=== PATIENT | male | born 1940 | race Caucasian/White ===

== ENCOUNTER 2016-05-13 20:28 | Emergency (ER) | payer MEDICARE, OTHER ==
[2016-05-13 21:18] LABS: ALT (SGPT) 20 U/L (0-55); AST (SGOT) 21 U/L (5-34); Alkaline Phosphatase 79 U/L (40-150); Anion Gap 15 mmol/L (10-20); BUN (Urea Nitrogen) 25 mg/dL (8.4-25.7); Bilirubin, Total 0.3 mg/dL (0.2-1.2); Calc. Creatinine Clearance 0 mL/min (70-130); Calcium 8.8 mg/dL (7.8-10.44); Carbon Dioxide 20 mmol/L (23-31); Chloride 105 mmol/L (98-107); Estimated GFR-MDRD 43; Globulin 2.6 g/dL (2.4-3.5); Protein, Total 6.7 g/dL (5.8-8.1)
[2016-05-13 21:20] LABS: Troponin I 0.023 ng/mL (< 0.028)
[2016-05-13 21:35] LABS: Hematocrit 46.4 % (42.0-52.0); Mean Platelet Volume 7.1 fL (7.4-10.4); Neutrophil 40 % (42-75); Reactive Lymphocytes 20 % (0-10); Red Blood Cell (RBC) Count 5.26 mill/uL (4.70-6.10); White Blood Cell (WBC) Count 14.8 thou/uL (4.8-10.8)
[2016-05-13] MEDS ORDERED: Metoprolol Tartrate 25 MG TAB ONE (21:42)
--- NOTE | 2016-05-13 22:05 | RAD ---
CHEST ONE VIEW 05/13/16 HISTORY: Atrial fibrillation, dyspnea. COMPARISON: 12/21/15 FINDINGS: The cardiac silhouette is magnified by projection. Mediastinum is midline with sternotomy wires and aortic calcification. There is no lobar consolidation. Mild bibasilar atelectasis is similar in appe arance to the prior study. Calcified granulomata are consistent with healed granulomatous disease. IMPRESSION: Chronic type findings appear stable. POS: [facility]
--- NOTE | 2016-05-14 00:28 | ERRECORD ---
[facility] EMERGENCY RECORD HPI PALPITATIONS (23:30 AGRE) CHIEF COMPLAINT: Patient presents for evaluation of heart racing. HISTORIAN: History provided by patient, History provided by patient's spouse, ABOUT 1 HR AGO HIS HEART STARTED RACING. NO CHEST PAIN OR SOB. HX OF SIMILAR EPISODES IN THE PAST WITH HIS ATRIAL FIBRILLATION. NO COUGH, ABDOMINAL PAIN OR OTHER SYMPTOMS. SAYS HAS EPISODES OF THIS FROM TIME TO TIME AT HOME AND IT WILL STOP ON ITS OWN BUT TONIGHT IT DID NOT. LOCATION: No localizing symptoms. QUALITY: NO PAIN. SEVERITY: Maximum severity of symptoms moderate, Currently symptoms are moderate. TIME COURSE: Sudden onset of symptoms, There has been no change in the patient's symptoms over time. CHADS2 SCORE: Patient has history of Congestive Heart Failure (1). ASSOCIATED WITH: No associated symptoms, No associated dizziness, Not associated with exertion, No associated headache, No associated nausea, No associated shortness of breath, No associated stress, No associated syncope, No associated vomiting, Denies any other complaints. EXACERBATED BY: Patient's condition exacerbated by nothing. RELIEVED BY: Patient's condition relieved by nothing. ROS (23:34 AGRE) CONSTITUTIONAL: Historian denies chills, denies fever, denies weakness. EYES: Historian denies eye redness, denies vision changes. ENT: Historian denies sore throat, denies stridor. CARDIOVASCULAR: Historian denies chest pain, denies diaphoresis, denies dyspnea on exertion, denies exercise intolerance, reports palpitations. RESPIRATORY: Historian denies cough, denies shortness of breath. GI: Historian denies abdominal pain, denies nausea, denies vomiting. MUSCULOSKELETAL: Historian denies back pain, denies neck pain. SKIN: Historian denies skin changes, denies skin lesions. NEUROLOGIC: Historian denies confusion, denies dizziness, denies focal weakness, denies headache. HEMO/LYMPHATIC: Normal hematologic/lymphatic system review, Historian denies petechiae. PSYCHIATRIC: Negative psychiatric review of systems, Historian denies anxiety. PAST MEDICAL HISTORY (: [facility]) MEDICAL HISTORY: Notes: CHF, Past medical history includes history of hypertension, cardiac history, coronary artery disease, arrhythmia, atrial fibrillation, ablation, Past medical history includes gastrointestinal disease, REFLUX,, Past medical history includes cardiac history, Past medical history includes history of hyperlipidemia,. MALE SURGICAL HISTORY: carpal tunnel (RIGHT), Surgical &a-1R&a+25V*p+0X*[id number]*c202B*c15G*c2P*p-0X&a-25V&a+1R Name: Isaac Smith : 1940 M75 MedRec: [id number] AcctNum: [id number] Prepared: ThuMay 14, 2016 00:46 by Interface Page 1 of 4 pMD [facility] EMERGENCY RECORD history of appendectomy, Surgical history of coronary artery bypass graft surgery, Surgical history of orthopedic surgery, back. SOCIAL HISTORY: Patient drinks socially, every week, Lives at home, with family, Patient denies drug use, Patient is a former tobacco user, smoked cigarettes, Patient quit smoking more than 10 years ago. KNOWN ALLERGIES No Known Drug Allergies CURRENT MEDICATIONS simvastatin: TABLET : Strength - 80 mg : ORAL Patient Dose: 1 tab(s) Oral once a day (in the morning). (20:35 [facility]) atenolol: TABLET : Strength - 25 mg : ORAL Patient Dose: tab(s) Oral 2 times a day. (20:35 [facility]) Ecotrin: TABLET, DELAYED RELEASE (ENTERIC COATED) : Strength - 325 mg : ORAL Patient Dose: 1 tab(s) Oral once a day (in the morning). (20:35 [facility]) nitroglycerin: TABLET, SUBLINGUAL : Strength - 0.4 mg : SUBLINGUAL Patient Dose: 1 tab(s) Sublingual As Needed. (20:35 [facility]) UNKNOWN BP MED (20:35 [facility]) Eliquis: TABLET : Strength - 2.5 mg : ORAL Patient Dose: UNK. (ThuMay 14, 2016 00:04 [facility]) VITAL SIGNS VITAL SIGNS: BP: 140/90, Pulse: 94, Resp: 20, O2 sat: 94 on Room Air, Time: 05/13/2016 21:15. (21:15 [facility]) BP: 156/98, Pulse: 157, Resp: 20, Temp: 97.8 (Oral), O2 sat: 95 on Room Air, Time: 05/13/2016 20:35. (20:35 [facility]) BP: 119/70, Pulse: 130, Resp: 20, O2 sat: 94 on Room Air, Time: 05/13/2016 21:46. (21:46 [facility]) BP: 134/95, Pulse: 141, Resp: 18, O2 sat: 96, Time: 05/13/2016 22:06. (22:06 [facility]) BP: 115/64, Pulse: 76, Resp: 20, O2 sat: 95 on Room Air, Time: 05/13/2016 22:27. (22:27 [facility]) BP: 120/80, Pulse: 110, Resp: 20, O2 sat: 96 on Room Air, Time: 05/13/2016 23:30. (23:30 [facility]) BP: 127/75, Pulse: 75, Resp: 20, Pain: 0, O2 sat: 95 on Room Air, Time: 05/13/2016 23:00. (23:00 [facility]) BP: 138/72, Pulse: 63, Resp: 26, O2 sat: 95% on RA, Time: 05/14/2016 00:11. (ThuMay 14, 2016 00:11 [facility]) PHYSICAL EXAM (23:34 [facility] CONSTITUTIONAL: Vital signs reviewed, Patient afebrile, &a-1R&a+25V*p+0X*[id number]*c202B*c15G*c2P*p-0X&a-25V&a+1R Name: Isaac Smith : 1940 M75 MedRec: [id number] AcctNum: [id number] Prepared: ThuMay 14, 2016 00:46 by Interface Page 2 of 4 pMD [facility] EMERGENCY RECORD Respiratory rate normal, Patient appears non toxic, Patient appears pain free, Patient alert and oriented to person, place and time, NURSES NOTES REVIEWED. HEAD: Head exam included findings of head atraumatic, normocephalic. EYES: Eye exam included findings of eyelids normal to inspection, Extraocular muscles intact, Conjunctiva normal, Sclera normal. ENT: Ear exam normal, Nose exam normal, Mouth exam normal. NECK: Neck exam normal, Neck exam included findings of normal range of motion, no meningeal signs, no cervical adenopathy. RESPIRATORY CHEST: Respiratory and chest exam normal, Respiratory exam included findings of no respiratory distress, Breath sounds clear, No wheezing, No rales, No rhonchi, Breath sounds not diminished. CARDIOVASCULAR: Cardiovascular exam included findings of, rate tachycardic, rhythm irregularly irregular, Heart sounds normal, normal S1, normal S2, no murmurs, no rub, no gallop. ABDOMEN MALE: Abdominal exam normal, Abdominal exam included findings of abdomen nontender, Bowel sounds normal, Liver normal, Spleen normal, no distension, no mass. BACK: Back exam normal, Back exam included findings of normal inspection, range of motion normal. UPPER EXTREMITY: Upper extremity exam included findings of inspection normal, Range of motion normal. LOWER EXTREMITY: Lower extremity exam included findings of inspection normal, Range of motion normal, Motor strength normal, Herman's negative, Edema present, to bilateral lower extremities, +1, no calf tenderness, no palpable cords. NEURO: Neuro exam normal, Neuro exam findings include patient oriented to person, place and time, Speech normal, Gait normal, Memory normal, Cranial nerves intact, no focal motor deficits. SKIN: Skin exam normal, Skin exam included findings of skin warm, dry, and normal in color. LYMPHATIC: Lymphatic exam normal, Lymphatic exam included findings of cervical nodes normal. PSYCHIATRIC: Psychiatric exam normal, Normal affect. EKG INTERPRETATION (21:04 AGRE) 12 LEAD EKG INTERPRETATION: 12 lead EKG interpreted by Emergency Department Physician at time of study, 12 lead EKG shows, atrial fibrillation with rapid ventricular response, Rate (beats per minute): 145, QS PATTERN INFERIORLY, LATERAL ISCHEMIA. RADIOLOGYINTERPRETATION (21:38 AGRE) PICU NURSE: Preliminary review of x-rays by, Radiologist, no acute changes. &a-1R&a+25V*p+0X*[id number]*c202B*c15G*c2P*p-0X&a-25V&a+1R Name: Isaac Smith : 1940 M75 MedRec: [id number] AcctNum: [id number] Prepared: ThuMay 14, 2016 00:46 by Interface Page 3 of 4 pMD [facility] EMERGENCY RECORD MEDICATION ADMINISTRATION SUMMARY Drug Name: Cardizem CD, Dose Ordered: 1 cap(s), Route: Oral, Status: Given, Time: 23:23 05/13/2016, Drug Name: diltiazem, Dose Ordered: 20 mg, Route: IV Push, Status: Given, Time: 22:10 05/13/2016, Drug Name: *Lopressor oral, Dose Ordered: 25 mg, Route: Oral, Status: Given, Time: 21:46 05/13/2016, Drug Name: diltiazem intravenous, Dose Ordered: 10 mg, Route: IV Push, Status: Given, Time: 21:12 05/13/2016, *Additional information available in notes, Detailed record available in Medication Service section. DOCTOR NOTES (23:21 [facility] TEXT: HR 76, PATIENT REMAINS PAIN FREE, NO SOB OR OTHER SYMPTOMS. LOOKS GOOD. SAYS HE IS FEELING MUCH BETTER AND WANTS TO GO HOME. HIS HEART RATE STAYS IN THE 70'S TO 80'S BUT WILL GO INTO 112 WHEN HE GETS ACTIVE. WILL START CARDIZEM CD NOW AND ADVISED HIM TO SEE HIS [employer]ED [employer] TRIMMER IN THE MORNING TO DETERMINE HIS MEDICATIONS FOR MANAGING HIS HEART RATE. PATIENT AND SAYS THAT THE ROLLED SEAT TRIMMER HAS DISCUSSED WITH THEM STARTING HIM ON MEDS TO CONTROL HIS HEART RATE IN THE PAST BUT THEY NEVER DID. THEY WILL DEFINITELY DISCUSS THIS WITH HER IN THE MORNING. THEY FEEL COMFORTABLE GOING HOME AT THIS TIME. DATA REVIEWED: Lab data reviewed, Xray data reviewed, Reviewed EKG, Old records obtained, Old records reviewed, Discussed with family. PROBLEM LIST No recorded problems DIAGNOSIS (23:26 AGRE) FINAL: PRIMARY: ATRIAL FIB WITH RAPID VENTRICULAR RESPONSE. PRESCRIPTION No recorded prescriptions DISPOSITION PATIENT: Disposition Type: Discharge, Disposition: *Discharge Home, Condition: Improved. (23:26 AGRE) Patient left the department. (ThuMay 14, 2016 00:17 KATLYN) [place]: MATI=MD Abraham, Tim POTTS=JAVI Hale, Solitario [facility]=JAVI Desai, Tete &a-1R&a+25V*p+0X*[id number]*c202B*c15G*c2P*p-0X&a-25V&a+1R Name: Isaac Smith : 1940 M75 MedRec: [id number] AcctNum: [id number] Prepared: ThuMay 14, 2016 00:46 by Interface Page 4 of 4 pMD MTDD
--- NOTE | 2016-05-14 00:35 | PICIS ---
[facility] EMERGENCY RECORD TRIAGE (ThuMay 13, 2016 20:34 [facility]) TRIAGE NOTES: AFIB. PTS HAS A HX OF AFIB. STATES HE FEELS LIKE HIS HEART IS RACING. HR AT HOME GOT UP TO 149. (ThuMay 13, 2016 20:34 [facility]) PATIENT: NAME: Isaac Smith, AGE: 75, GENDER: male, : [id number], TIME OF GREET: ThuMay 13, 2016 20:30, PREFERRED LANGUAGE: Amharic, ETHNICITY: Not or , ECODE BILLING MAP: [facility], SSN: [id number], Zip Code: [address], PHONE: , , , PERSON ID: [id number], PCP: Shannan RENEE POLLACHI. (ThuMay 13, 2016 20:34 [facility]) KG WEIGHT: 97.5 (est.). (21:19 [facility]) COMPLAINT: AFIB. (ThuMay 13, 2016 20:34 [facility]) ADMISSION: URGENCY: 3 Urgent, ADMISSION SOURCE: Home, TRANSPORT: CAR, BED: TRIAGE. (ThuMay 13, 2016 20:34 [facility]) ASSESSMENT: Symptoms began 05/13/2016 19:00. (21:27 LK) PAIN: No complaint of pain. (21:27 [facility]) IMMUNIZATIONS: Flu vaccine up to date, Tetanus immunization up to date, Pneumococcal vaccine up to date. (21:27 [facility]) SIRS SCORING: Heart Rate 55-109 (0), Temp range 96.8-101.1 (0), respiratory rate 12-24 (0), Mental Status altered: no (0). (21:27 [facility]) TRIAGE SCREENING: Patient denies suicidal ideation, Patient denies presence of domestic violence. (21:27 LK) TREATMENTS IN PROGRESS: Treatments given Prehospital: none. (21:27 [facility]) PROVIDERS: TRIAGE NURSE: Tete Desai RN. (ThuMay 13, 2016 20:34 [facility]) PREVIOUS VISIT ALLERGIES: No Known Drug Allergies. (ThuMay 13, 2016 20:34 [facility]) No Known Drug Allergies. (21:27 [facility]) KNOWN ALLERGIES No Known Drug Allergies CURRENT MEDICATIONS simvastatin: TABLET : Strength - 80 mg : ORAL Patient Dose: 1 tab(s) Oral once a day (in the morning). (20:35 [facility]) atenolol: TABLET : Strength - 25 mg : ORAL Patient Dose: tab(s) Oral 2 times a day. (20:35 [facility]) Ecotrin: TABLET, DELAYED RELEASE (ENTERIC COATED) : Strength - 325 mg : ORAL Patient Dose: 1 tab(s) Oral once a day (in the morning). (20:35 [facility]) nitroglycerin: TABLET, SUBLINGUAL : Strength - 0.4 mg : SUBLINGUAL Patient Dose: 1 tab(s) Sublingual As Needed. (20:35 [facility]) &a-1R&a+25V*p+0X*o3041W*c202B*c15G*c2P*p-0X&a-25V&a+1R Name: Isaac Smith : 1940 M75 MedRec: [id number] AcctNum: [id number] Prepared: ThuMay 14, 2016 00:53 by Interface Page 1 of 10 pMD [facility] EMERGENCY RECORD UNKNOWN BP MED (20:35 [facility]) Eliquis: TABLET : Strength - 2.5 mg : ORAL Patient Dose: UNK. (ThuMay 14, 2016 00:04 [facility]) VITAL SIGNS VITAL SIGNS: BP: 140/90, Pulse: 94, Resp: 20, O2 sat: 94 on Room Air, Time: 05/13/2016 21:15. (21:15 [facility]) BP: 156/98, Pulse: 157, Resp: 20, Temp: 97.8 (Oral), O2 sat: 95 on Room Air, Time: 05/13/2016 20:35. (20:35 [facility]) BP: 119/70, Pulse: 130, Resp: 20, O2 sat: 94 on Room Air, Time: 05/13/2016 21:46. (21:46 [facility]) BP: 134/95, Pulse: 141, Resp: 18, O2 sat: 96, Time: 05/13/2016 22:06. (22:06 [facility]) BP: 115/64, Pulse: 76, Resp: 20, O2 sat: 95 on Room Air, Time: 05/13/2016 22:27. (22:27 [facility]) BP: 120/80, Pulse: 110, Resp: 20, O2 sat: 96 on Room Air, Time: 05/13/2016 23:30. (23:30 [facility]) BP: 127/75, Pulse: 75, Resp: 20, Pain: 0, O2 sat: 95 on Room Air, Time: 05/13/2016 23:00. (23:00 [facility]) BP: 138/72, Pulse: 63, Resp: 26, O2 sat: 95% on RA, Time: 05/14/2016 00:11. (ThuMay 14, 2016 00:11 [facility]) NURSING ASSESSMENT: CARDIOVASCULAR (21:53 [facility]) CONSTITUTIONAL: Complex assessment performed, Patient arrives, via hospital wheelchair, Gait steady, History obtained from patient, Patient appears comfortable, Patient cooperative, Patient alert, Oriented to person, place and time, Skin warm, Skin dry, Skin normal in color, Mucous membranes pink, Mucous membranes moist, Patient is well-groomed, Patient complains of AFIB. PAIN: Patient rates pain as 0 out of 10. CARDIOVASCULAR: Cardiovascular assessment findings include heart rate, irregular, tachycardic, Heart rhythm, atrial fibrillation with rapid ventricular response, Left radial pulse +3(easily palpated, considered normal), Right radial pulse +3(easily palpated, considered normal), Left dorsalis pedis pulse +3(easily palpated, considered normal), Right dorsalis pedis pulse +3(easily palpated, considered normal), No associated diaphoresis, no associated dyspnea, no associated dizziness, No history of pulmonary embolism, No history of DVT or leg swelling. RESPIRATORY/CHEST: Breath sounds clear, Respiratory assessment findings include respiratory effort easy, Respirations regular, Conversing normally, Neck and chest exam findings include trachea midline, Chest expansion equal, Chest movement symmetrical, no associated cough noted, no associated fever. SAFETY: Side rails up, Cart/Stretcher in lowest position, Family at bedside, Call light within reach, Hospital ID band on. NURSING PROCEDURE: BEDSIDE RADIOLOGY (21:00 [facility]) &a-1R&a+25V*p+0X*h5155D*c202B*c15G*c2P*p-0X&a-25V&a+1R Name: Isaac Smith : 1940 M75 MedRec: [id number] AcctNum: [id number] Prepared: ThuMay 14, 2016 00:53 by Interface Page 2 of 10 pMD [facility] EMERGENCY RECORD PATIENT IDENTIFIER: Patient actively involved in identification process. BEDSIDE RADIOLOGY: Bedside radiology performed by CHETAN, Portable chest x-ray performed. NURSING PROCEDURE: DISCHARGE NOTE (ThuMay 14, 2016 00:11 [facility]) DISCHARGE: Patient discharged to home, ambulating without assistance, family driving, accompanied by //partner, Summary of Care printed/ provided, Discharge instructions given to patient, Discharge instructions given to and son, Simple or moderate discharge teaching performed, by Solitario Hale RN, f/u with collection systems consultant in the morning. do not take simvastatin until you discuss medication with him. Continue eliquist. Inform your collection systems consultant that we gave you Cardizem CD 120mg tonight. and see what meds she wants you to continue., Above person(s) verbalized understanding of discharge instructions and follow-up care, Patient treated and evaluated by physician, Notes: ambulatory with short steps, gait is steady. BELONGINGS: Belongings and valuables with patient at time of discharge include:, Belongings remain with patient, Valuables remain with patient. VITAL SIGNS: BP: 138, / 72, Pulse: 63, Resp: 26, O2 sat: 95%, on: RA. NURSING PROCEDURE: EKG CHART PATIENT IDENTIFIER: Patient actively involved in identification process, Patient's identity verified by patient stating name, Patient's identity verified by patient stating date, Patient's identity verified by hospital ID bracelet. (20:44 [facility]) EK lead EKG performed on the left chest, done by JAVI Jordan, first EKG. (20:44 [facility]) EKG indicated for REPEAT EKG, 12 lead EKG performed on the left chest, done by JAVI JORDAN, second EKG. (23:25 [facility]) FOLLOW-UP: After procedure, EKG for interpretation given to Dr. REED, Notes: A-FIB W/RVR. (20:44 [facility]) After procedure, EKG for interpretation given to Dr. REED. (23:25 [facility]) NURSING PROCEDURE: IV (20:50 [facility]) PATIENT IDENITIFIER: Patient actively involved in identification process, Patient's identity verified by patient stating name, Patient's identity verified by patient stating date, Patient's identity verified by hospital ID bracelet. IV SITE 1: IV established, to the left antecubital, using a 20 gauge catheter, in one attempt, IV site prepped with Chloroprep, Saline lock established, Flushed with normal saline (mls): 10mLs, Labs drawn at time of placement, labeled in the presence of the patient and sent to lab, Notes: IV site C/D/I. no pain, redness, or swelling. IV start kit/extension tubing used. SAFETY: Side rails up, Cart/Stretcher in lowest position, Call light within reach, Hospital ID band on. &a-1R&a+25V*p+0X*w0102O*c202B*c15G*c2P*p-0X&a-25V&a+1R Name: Isaac Smith : 1940 M75 MedRec: [id number] AcctNum: [id number] Prepared: ThuMay 14, 2016 00:53 by Interface Page 3 of 10 pMD [facility] EMERGENCY RECORD ORDER DETAILS Order Name: B type Natriuretic Peptide, Status: Active, Time: 20:45 05/13/2016, User: MATI, - Ordered for: MD Reed Andrea, - Entered by: MD Reed Andrea - Tue May 13, 2016 20:45, - Quantity: 1, Order Name: FRANCHISE DEVELOPMENT MANAGER ED, Status: Done, Time: 20:54 05/13/2016, User: [facility], - Ordered for: MD Reed Andrea, - Entered by: MD Reed Andrea - Tue May 13, 2016 20:45, - Quantity: 1, Order Name: Cardiac Profile w/CKMB & Troponin - I, Status: Active, Time: 20:45 05/13/2016, User: MATI, - Ordered for: MD Reed Andrea, - Entered by: MD Reed Andrea - Tue May 13, 2016 20:45, - Quantity: 1, Order Name: CBC with Differential, Status: Active, Time: 20:45 05/13/2016, User: MATI, - Ordered for: MD Reed Andrea, - Entered by: MD Reed Andrea - Tue May 13, 2016 20:45, - Quantity: 1, Order Name: Comprehensive Metabolic Panel, Status: Active, Time: 20:45 05/13/2016, User: MATI, - Ordered for: MD Reed Andrea, - Entered by: MD Reed Andrea - Tue May 13, 2016 20:45, - Quantity: 1, Order Name: EKG 12 Lead in Emergency Room, Status: Active, Time: 23:21 05/13/2016, User: MATI, - Ordered for: MD Reed Andrea, - Entered by: MD Reed Andrea - Tue May 13, 2016 23:21, - Quantity: 1, Order Name: EKG 12 Lead in Emergency Room, Status: Active, Time: 20:45 05/13/2016, User: MATI, - Ordered for: MD Reed Andrea, - Entered by: MD Reed Andrea - Tue May 13, 2016 20:45, - Quantity: 1, Order Name: SALINE LOCK, Status: Done, Time: 20:54 05/13/2016, User: CYNTHIA, - Ordered for: MD Reed Andrea, - Entered by: MD Reed Andrea - Tue May 13, 2016 20:45, - Quantity: 1, Order Name: XR Chest 1 View Portable, Status: Active, Time: 20:45 05/13/2016, User: MATI, - Ordered for: MD Reed Andrea, - Entered by: MD Reed Andrea - Tue May 13, 2016 20:45, - Quantity: 1. MEDICATION ADMINISTRATION SUMMARY &a-1R&a+25V*p+0X*u1266V*c202B*c15G*c2P*p-0X&a-25V&a+1R Name: Isaac Smith : 1940 M75 MedRec: [id number] AcctNum: [id number] Prepared: ThuMay 14, 2016 00:53 by Interface Page 4 of 10 pMD [facility] EMERGENCY RECORD Drug Name: Cardizem CD, Dose Ordered: 1 cap(s), Route: Oral, Status: Given, Time: 23:23 05/13/2016, Drug Name: diltiazem, Dose Ordered: 20 mg, Route: IV Push, Status: Given, Time: 22:10 05/13/2016, Drug Name: *Lopressor oral, Dose Ordered: 25 mg, Route: Oral, Status: Given, Time: 21:46 05/13/2016, Drug Name: diltiazem intravenous, Dose Ordered: 10 mg, Route: IV Push, Status: Given, Time: 21:12 05/13/2016, *Additional information available in notes, Detailed record available in Medication Service section. MEDICATION SERVICE Cardizem CD: Order: Cardizem CD (diltiazem HCl) - Dose: 1 cap(s) : Oral Ordered by: Tim Reed MD Entered by: Tim Reed MD ThuMay 13, 2016 23:21 , Acknowledged by: Tete Desai RN ThuMay 13, 2016 23:22 Documented as given by: Tete Desai RN ThuMay 13, 2016 23:23 Patient, Medication, Dose, Route and Time verified prior to administration. Amount given: 120MG, Site: Medication administered P.O., Correct patient, time, route, dose and medication confirmed prior to administration, Patient advised of actions and side-effects prior to administration, Allergies confirmed and medications reviewed prior to administration. diltiazem: Order: diltiazem (diltiazem HCl) - Dose: 20 mg : IV Push POTENTIAL CONTRAINDICATED INTERACTION: simvastatin - Benefits outweigh risks Ordered by: Tim Reed MD Entered by: Tim Reed MD ThuMay 13, 2016 22:31 Documented as given by: Tete Desai RN ThuMay 13, 2016 22:10 Patient, Medication, Dose, Route and Time verified prior to administration. Amount given: 20MG, IV SITE #1 IVP, repeat same medication, Slowly, Awake and alert- acceptable, Catheter placement confirmed via flush prior to administration, IV site without signs or symptoms of infiltration during medication administration, No swelling during administration, No drainage during administration, IV flushed after administration, Correct patient, time, route, dose and medication confirmed prior to administration, Patient advised of actions and side-effects prior to administration, Allergies confirmed and medications reviewed prior to administration. : Follow Up : No signs or symptoms of allergic reaction noted, Decreased heart rate, _IV SITE #1:_. (22:40 [facility]) diltiazem intravenous: Order: diltiazem intravenous (diltiazem HCl) - Dose: 10 mg : IV Push POTENTIAL CONTRAINDICATED INTERACTION: simvastatin - Benefits outweigh risks &a-1R&a+25V*p+0X*e1596O*c202B*c15G*c2P*p-0X&a-25V&a+1R Name: Isaac Smith : 1940 M75 MedRec: [id number] AcctNum: [id number] Prepared: ThuMay 14, 2016 00:53 by Interface Page 5 of 10 pMD [facility] EMERGENCY RECORD Ordered by: Tim Reed MD Entered by: Tim Reed MD ThuMay 13, 2016 20:45 , Acknowledged by: Tete Desai RN ThuMay 13, 2016 20:55 Documented as given by: Tete Desai RN ThuMay 13, 2016 21:12 Patient, Medication, Dose, Route and Time verified prior to administration. Amount given: 10MG, IV SITE #1 IVP, initial medication, Slowly, Awake and alert- acceptable, Catheter placement confirmed via flush prior to administration, IV site without signs or symptoms of infiltration during medication administration, No swelling during administration, No drainage during administration, IV flushed after administration, Correct patient, time, route, dose and medication confirmed prior to administration, Patient advised of actions and side-effects prior to administration, Allergies confirmed and medications reviewed prior to administration. : Follow Up : No signs or symptoms of allergic reaction noted, Decreased heart rate, _IV SITE #1:_. (21:20 [facility]) Lopressor oral: Order: Lopressor oral (metoprolol tartrate) - Dose: 25 mg : Oral Schedule: Now Notes: Read back and verified, Verbal Order Ordered by: Tim Reed MD Entered by: Tete Desai RN ThuMay 13, 2016 21:51 Documented as given by: Tete Desai RN Tue May 13, 2016 21:46 Patient, Medication, Dose, Route and Time verified prior to administration. Amount given: 25MG, Site: Medication administered P.O., Patient appears Awake and alert- acceptable, Correct patient, time, route, dose and medication confirmed prior to administration, Patient advised of actions and side-effects prior to administration, Allergies confirmed and medications reviewed prior to administration. HPI PALPITATIONS (23:30 [facility]) CHIEF COMPLAINT: Patient presents for evaluation of heart racing. HISTORIAN: History provided by patient, History provided by patient's spouse, ABOUT 1 HR AGO HIS HEART STARTED RACING. NO CHEST PAIN OR SOB. HX OF SIMILAR EPISODES IN THE PAST WITH HIS ATRIAL FIBRILLATION. NO COUGH, ABDOMINAL PAIN OR OTHER SYMPTOMS. SAYS HAS EPISODES OF THIS FROM TIME TO TIME AT HOME AND IT WILL STOP ON ITS OWN BUT TONIGHT IT DID NOT. LOCATION: No localizing symptoms. QUALITY: NO PAIN. SEVERITY: Maximum severity of symptoms moderate, Currently symptoms are moderate. TIME COURSE: Sudden onset of symptoms, There has been no change in the patient's symptoms over time. CHADS2 SCORE: Patient has history of Congestive Heart Failure (1). ASSOCIATED WITH: No associated symptoms, No associated dizziness, Not associated with exertion, No associated headache, No associated nausea, No associated shortness of breath, No associated stress, No associated syncope, No associated vomiting, Denies any &a-1R&a+25V*p+0X*v3911V*c202B*c15G*c2P*p-0X&a-25V&a+1R Name: Isaac Smith : 1940 M75 MedRec: [id number] AcctNum: [id number] Prepared: ThuMay 14, 2016 00:53 by Interface Page 6 of 10 pMD [facility] EMERGENCY RECORD other complaints. EXACERBATED BY: Patient's condition exacerbated by nothing. RELIEVED BY: Patient's condition relieved by nothing. ROS (23:34 [facility]) CONSTITUTIONAL: Historian denies chills, denies fever, denies weakness. EYES: Historian denies eye redness, denies vision changes. ENT: Historian denies sore throat, denies stridor. CARDIOVASCULAR: Historian denies chest pain, denies diaphoresis, denies dyspnea on exertion, denies exercise intolerance, reports palpitations. RESPIRATORY: Historian denies cough, denies shortness of breath. GI: Historian denies abdominal pain, denies nausea, denies vomiting. MUSCULOSKELETAL: Historian denies back pain, denies neck pain. SKIN: Historian denies skin changes, denies skin lesions. NEUROLOGIC: Historian denies confusion, denies dizziness, denies focal weakness, denies headache. HEMO/LYMPHATIC: Normal hematologic/lymphatic system review, Historian denies petechiae. PSYCHIATRIC: Negative psychiatric review of systems, Historian denies anxiety. PAST MEDICAL HISTORY (21:27 [facility]) MEDICAL HISTORY: Notes: CHF, Past medical history includes history of hypertension, cardiac history, coronary artery disease, arrhythmia, atrial fibrillation, ablation, Past medical history includes gastrointestinal disease, REFLUX,, Past medical history includes cardiac history, Past medical history includes history of hyperlipidemia,. MALE SURGICAL HISTORY: carpal tunnel (RIGHT), Surgical history of appendectomy, Surgical history of coronary artery bypass graft surgery, Surgical history of orthopedic surgery, back. SOCIAL HISTORY: Patient drinks socially, every week, Lives at home, with family, Patient denies drug use, Patient is a former tobacco user, smoked cigarettes, Patient quit smoking more than 10 years ago. PHYSICAL EXAM (23:34 [facility]) CONSTITUTIONAL: Vital signs reviewed, Patient afebrile, Respiratory rate normal, Patient appears non toxic, Patient appears pain free, Patient alert and oriented to person, place and time, NURSES NOTES REVIEWED. HEAD: Head exam included findings of head atraumatic, normocephalic. EYES: Eye exam included findings of eyelids normal to inspection, Extraocular muscles intact, Conjunctiva normal, Sclera normal. ENT: Ear exam normal, Nose exam normal, Mouth exam normal. NECK: Neck exam normal, Neck exam included findings of normal &a-1R&a+25V*p+0X*v7365R*c202B*c15G*c2P*p-0X&a-25V&a+1R Name: Isaac Smith : 1940 M75 MedRec: [id number] AcctNum: [id number] Prepared: ThuMay 14, 2016 00:53 by Interface Page 7 of 10 pMD [facility] EMERGENCY RECORD range of motion, no meningeal signs, no cervical adenopathy. RESPIRATORY CHEST: Respiratory and chest exam normal, Respiratory exam included findings of no respiratory distress, Breath sounds clear, No wheezing, No rales, No rhonchi, Breath sounds not diminished. CARDIOVASCULAR: Cardiovascular exam included findings of, rate tachycardic, rhythm irregularly irregular, Heart sounds normal, normal S1, normal S2, no murmurs, no rub, no gallop. ABDOMEN MALE: Abdominal exam normal, Abdominal exam included findings of abdomen nontender, Bowel sounds normal, Liver normal, Spleen normal, no distension, no mass. BACK: Back exam normal, Back exam included findings of normal inspection, range of motion normal. UPPER EXTREMITY: Upper extremity exam included findings of inspection normal, Range of motion normal. LOWER EXTREMITY: Lower extremity exam included findings of inspection normal, Range of motion normal, Motor strength normal, Herman's negative, Edema present, to bilateral lower extremities, +1, no calf tenderness, no palpable cords. NEURO: Neuro exam normal, Neuro exam findings include patient oriented to person, place and time, Speech normal, Gait normal, Memory normal, Cranial nerves intact, no focal motor deficits. SKIN: Skin exam normal, Skin exam included findings of skin warm, dry, and normal in color. LYMPHATIC: Lymphatic exam normal, Lymphatic exam included findings of cervical nodes normal. PSYCHIATRIC: Psychiatric exam normal, Normal affect. LAB INTERPRETATION INTERPRETATION: Chemistry abnormal, Glucose elevated, Creatinine elevated, Bicarbonate decreased. (21:37 [facility]) CBC abnormal, White blood cell count elevated, Cardiac enzymes abnormal, BNP elevated, Cardiac enzymes otherwise normal. (21:36 [facility]) EVENTS TRANSFER: Triage to Emergency Triage. (20:34 [facility]) Emergency Triage to Emergency Room -05. (20:54 [facility]) Removed from Emergency Emergency Room -05. (ThuMay 14, 2016 00:17 [facility]) RADIOLOGYINTERPRETATION (21:38 [facility]) TITLE SEARCHER: Preliminary review of x-rays by, Radiologist, no acute changes. EKG INTERPRETATION (21:04 [facility]) 12 LEAD EKG INTERPRETATION: 12 lead EKG interpreted by Emergency Department Physician at time of study, 12 lead EKG shows, &a-1R&a+25V*p+0X*u8202A*c202B*c15G*c2P*p-0X&a-25V&a+1R Name: Isaac Smith : 1940 M75 MedRec: [id number] AcctNum: [id number] Prepared: ThuMay 14, 2016 00:53 by Interface Page 8 of 10 pMD [facility] EMERGENCY RECORD atrial fibrillation with rapid ventricular response, Rate (beats per minute): 145, QS PATTERN INFERIORLY, LATERAL ISCHEMIA. O2SAT INTERPRETATION (23:36 [facility]) O2SAT: Continuous pulse oximetry, Oxygen saturation 96%, on room air, Oxygen saturation interpretation: Normal, No intervention required. DOCTOR NOTES (23:21 [facility]) TEXT: HR 76, PATIENT REMAINS PAIN FREE, NO SOB OR OTHER SYMPTOMS. LOOKS GOOD. SAYS HE IS FEELING MUCH BETTER AND WANTS TO GO HOME. HIS HEART RATE STAYS IN THE 70'S TO 80'S BUT WILL GO INTO 112 WHEN HE GETS ACTIVE. WILL START CARDIZEM CD NOW AND ADVISED HIM TO SEE HIS MEDICAL ASSEMBLER IN THE MORNING TO DETERMINE HIS MEDICATIONS FOR MANAGING HIS HEART RATE. PATIENT AND SAYS THAT THE MEDICAL ASSEMBLER HAS DISCUSSED WITH THEM STARTING HIM ON MEDS TO CONTROL HIS HEART RATE IN THE PAST BUT THEY NEVER DID. THEY WILL DEFINITELY DISCUSS THIS WITH HER IN THE MORNING. THEY FEEL COMFORTABLE GOING HOME AT THIS TIME. DATA REVIEWED: Lab data reviewed, Xray data reviewed, Reviewed EKG, Old records obtained, Old records reviewed, Discussed with family. PROBLEM LIST No recorded problems DIAGNOSIS (23:26 [facility]) FINAL: PRIMARY: ATRIAL FIB WITH RAPID VENTRICULAR RESPONSE. DISPOSITION PATIENT: Disposition Type: Discharge, Disposition: *Discharge Home, Condition: Improved. (23:26 AGRE) Patient left the department. (ThuMay 14, 2016 00:17 [facility]) INSTRUCTION (23:29 [facility]) DISCHARGE: PAROXYSMAL ATRIAL FIBRILLATION. FOLLOWUP: Shannan RENEE, GILBERTO, Internal Medicine, [address] [facility] [id number], [id number], MD Jolly G. Jean, Cardiology, [address] [address], . SPECIAL: CONTINUE YOUR CURRENT MEDICATIONS. DO NOT TAKE YOUR SIMVASTATIN IN THE MORNING UNTIL YOU SPEAK WITH YOUR MEDICAL ASSEMBLER. CALL YOUR MEDICAL ASSEMBLER IN THE MORNING TO DISCUSS MANAGEMENT OF YOUR ATRIAL FIBRILLATION. LET YOUR PHYSICIAN KNOW THAT WE GAVE YOU CARDIZEM CD 120 MG TONIGHT AND SEE WHAT MEDS SHE WANTS YOU TO CONTINUE WITH. PRESCRIPTION No recorded prescriptions &a-1R&a+25V*p+0X*h8507W*c202B*c15G*c2P*p-0X&a-25V&a+1R Name: Isaac Smith : 1940 M75 MedRec: [id number] AcctNum: [id number] Prepared: ThuMay 14, 2016 00:53 by Interface Page 9 of 10 pMD [facility] EMERGENCY RECORD IMAGING *EKG: Image captured from scanner. (21:57 [facility]) *DISCHARGE INSTRUCTIONS RECEIPT: Image captured from scanner. (ThuMay 14, 2016 00:10 [facility]) *SUPPLY CHARGE SHEET: Image captured from scanner. (ThuMay 14, 2016 00:11 [facility]) ADMIN (ThuMay 14, 2016 00:39 MATI) DIGITAL SIGNATURE: MD Reed Andrea. [place]: MATI=MD Abraham, Tim TIARRA=CITLALI Oliveira Kayce LEEW=JAVI Hale, [facility] [facility] &a-1R&a+25V*p+0X*[id number]*c202B*c15G*c2P*p-0X&a-25V&a+1R Name: Isaac Smith : 1940 M75 MedRec: [id number] AcctNum: [id number] Prepared: ThuMay 14, 2016 00:53 by Interface Page 10 of 10 pMD MTDD
== END 2016-05-14 00:17 | disposition home or self-care (01) ==
LOC: NAV ERS 20:28
DX: I48.91 Unspecified atrial fibrillation (principal); I50.9 Heart failure, unspecified; I10 Essential (primary) hypertension; K21.9 Gastro-esophageal reflux disease without esophagitis; E78.5 Hyperlipidemia, unspecified; Z79.899 Other long term (current) drug therapy
CPT/HCPCS: 71010; 80053; 82553; 83880; 84484; 85025; 93005; 96374; 96376

== ENCOUNTER 2016-05-21 09:09 | Outpatient (CLI) | payer MEDICARE, OTHER ==
[2016-05-21 13:10] LABS: Anion Gap 16 mmol/L (10-20); BUN (Urea Nitrogen) 21 mg/dL (8.4-25.7); Calc. Creatinine Clearance 0 mL/min (70-130); Carbon Dioxide 24 mmol/L (23-31); Chloride 101 mmol/L (98-107); Estimated GFR-MDRD 44; LDL Cholesterol, Calculated 84 mg/dL
[2016-05-21 13:20] LABS: Hemoglobin A1c 6.5 % (4.0-6.0)
[2016-05-21 14:26] LABS: Hematocrit 44.3 % (42.0-52.0); Mean Platelet Volume 7.4 fL (7.4-10.4); Red Blood Cell (RBC) Count 5.02 mill/uL (4.70-6.10); White Blood Cell (WBC) Count 13.2 thou/uL (4.8-10.8)
[2016-05-21 14:27] LABS: Band 1 % (5-11); Neutrophil 43 % (42-75); Reactive Lymphocytes 4 % (0-10)
== END 2016-05-21 09:10 ==
LOC: NAVSJIPCSP 09:09
PROVIDERS: ATTEND Internal Medicine
DX: E78.5 Hyperlipidemia, unspecified (principal); E11.51 Type 2 diabetes mellitus with diabetic peripheral angiopathy without gangrene; I25.10 Atherosclerotic heart disease of native coronary artery without angina pectoris; C95.10 Chronic leukemia of unspecified cell type not having achieved remission; I13.10 Hypertensive heart and chronic kidney disease without heart failure, with stage 1 through stage 4 chronic kidney disease, or unspecified chronic kidney disease; N18.2 Chronic kidney disease, stage 2 (mild); Z79.899 Other long term (current) drug therapy
CPT/HCPCS: 36415; 80048; 80061; 83036; 85025

== ENCOUNTER 2016-08-18 08:30 | Outpatient (CLI) | payer MEDICARE, OTHER ==
[2016-08-18 13:05] LABS: Cardiac Risk 2.2 (Less than 4.5)
[2016-08-18 22:15] LABS: #Basophils 0.1 thou/uL (0.0-0.2); #Eosinphils 0.5 thou/uL (0.0-0.7); #Lymphocytes 7.2 thou/uL (1.20-3.40); #Monocytes 1.1 thou/uL (0.11-0.59); #Neutrophils 5.6 thou/uL (1.40-6.50); %Basophils 0.8 % (0.0-1.0); %Eosinophils 3.4 % (0.0-10.0); %Lymphocytes 49.9 % (21.0-51.0); %Monocytes 7.2 % (0.0-10.0); %Neutrophils 38.7 % (42.0-75.0); Differential Comment SCANNED; Mean Corpuscular HGB CONC 31.5 g/dL (32.0-36.0); Mean Corpuscular Hemoglobin 27.7 pg (27.0-31.0); Mean Platelet Volume 7.4 fL (7.4-10.4); Platelet Count 201 thou/uL (130-400); Red Blood Cell (RBC) Count 4.68 mill/uL (4.70-6.10); White Blood Cell (WBC) Count 14.5 thou/uL (4.8-10.8)
== END 2016-08-18 08:31 | disposition home or self-care (01) ==
LOC: NAVSJIPCSP 08:30
PROVIDERS: ATTEND Internal Medicine
DX: C95.10 Chronic leukemia of unspecified cell type not having achieved remission (principal); E11.51 Type 2 diabetes mellitus with diabetic peripheral angiopathy without gangrene; E78.5 Hyperlipidemia, unspecified; Z79.899 Other long term (current) drug therapy
CPT/HCPCS: 36415; 80061; 83036; 85025

== ENCOUNTER 2016-11-13 20:53 | Emergency (ER) | payer MEDICARE, OTHER ==
[2016-11-13] MEDS ORDERED: Sodium Chloride 0.9% 100 ML ONE ×3 (21:26→21:27)
[2016-11-13] MEDS ORDERED: Sodium Chloride 0.9% 1,000 ML ONE (21:27)
[2016-11-13 21:52] LABS: ALT (SGPT) 22 U/L (8-55); Albumin 3.7 g/dL (3.4-4.8); Alkaline Phosphatase 63 U/L (40-150); Anion Gap 13 mmol/L (10-20); BUN (Urea Nitrogen) 29 mg/dL (8.4-25.7); Bilirubin, Total 0.4 mg/dL (0.2-1.2); CK (CPK) 91 U/L (30-200); Calc. Creatinine Clearance 0 mL/min (70-130); Calcium 8.8 mg/dL (7.8-10.44); Carbon Dioxide 21 mmol/L (23-31); Chloride 106 mmol/L (98-107); Estimated GFR-MDRD 40; Globulin 2.9 g/dL (2.4-3.5); Glucose 123 mg/dL (83-110); Potassium 4.9 mmol/L (3.5-5.1); Protein, Total 6.6 g/dL (5.8-8.1); Sodium 135 mmol/L (136-145)
[2016-11-13 21:54] LABS: CKMB 1.5 ng/mL (0-6.6); Hemoglobin 12.9 g/dL (14.0-18.0); Mean Corpuscular HGB CONC 31.4 g/dL (32.0-36.0); Mean Corpuscular Hemoglobin 27.4 pg (27.0-31.0); Mean Corpuscular Volume 87.4 fl (80.0-94.0); Mean Platelet Volume 8.4 fL (7.4-10.4); Platelet Count 193 thou/uL (130-400); RBC Distribution Width 13.7 % (11.5-14.5); Troponin I Less than 0.010 ng/mL (< 0.028); White Blood Cell (WBC) Count 13.4 thou/uL (4.8-10.8)
[2016-11-13 21:58] LABS: Band 2 % (5-11); Lymphocytes 61 % (21-51); MDiff Complete? YES; Neutrophil 37 % (42-75); PLT Morphology Comment Appears Adequate; RBC Morphology Normal
[2016-11-13 21:59] LABS: AST (SGOT) 25 U/L (5-34)
== END 2016-11-13 22:20 | disposition home or self-care (01) ==
LOC: NAV ERS 20:53
DX: I48.91 Unspecified atrial fibrillation (principal); I10 Essential (primary) hypertension; I25.10 Atherosclerotic heart disease of native coronary artery without angina pectoris; K21.9 Gastro-esophageal reflux disease without esophagitis; E78.5 Hyperlipidemia, unspecified; Z87.891 Personal history of nicotine dependence; Z79.899 Other long term (current) drug therapy
CPT/HCPCS: 36415; 80053; 82553; 84484; 85025; 93005; 96374; J7050

== ENCOUNTER 2016-11-20 09:15 | Outpatient (CLI) | payer MEDICARE, OTHER ==
[2016-11-20 12:52] LABS: ALT (SGPT) 20 U/L (8-55); AST (SGOT) 21 U/L (5-34); Alkaline Phosphatase 66 U/L (40-150); Anion Gap 15 mmol/L (10-20); BUN (Urea Nitrogen) 27 mg/dL (8.4-25.7); Bilirubin, Total 0.6 mg/dL (0.2-1.2); Calc. Creatinine Clearance 0 mL/min (70-130); Calcium 8.9 mg/dL (7.8-10.44); Carbon Dioxide 25 mmol/L (23-31); Cardiac Risk 2.4 (Less than 4.5); Chloride 104 mmol/L (98-107); Cholesterol 122 mg/dl (< 200 Desired); Estimated GFR-MDRD 38; Glucose 96 mg/dL (83-110); HDL Cholesterol 50 mg/dL (>60 Neg Risk); LDL Cholesterol, Calculated 58 mg/dL; Potassium 4.5 mmol/L (3.5-5.1); Sodium 139 mmol/L (136-145); Triglycerides 69 mg/dL (Less than 150)
[2016-11-20 13:12] LABS: Hemoglobin A1c 6.2 % (4.0-6.0)
[2016-11-20 13:33] LABS: Band 1 % (5-11); Eosinophils 7 % (0-10); Hemoglobin 13.1 g/dL (14.0-18.0); Lymphocytes 22 % (21-51); MDiff Complete? YES; Mean Corpuscular HGB CONC 31.1 g/dL (32.0-36.0); Mean Corpuscular Hemoglobin 27.6 pg (27.0-31.0); Mean Corpuscular Volume 88.7 fl (80.0-94.0); Monocytes 3 % (0-10); Neutrophil 56 % (42-75); PLT Morphology Comment Appears Adequate; Platelet Count 184 thou/uL (130-400); RBC Distribution Width 13.8 % (11.5-14.5); RBC Morphology Normal; Reactive Lymphocytes 10 % (0-10); Red Blood Cell (RBC) Count 4.73 mill/uL (4.70-6.10); White Blood Cell (WBC) Count 13.1 thou/uL (4.8-10.8)
[2016-11-21 11:49] LABS: Bilirubin Negative (Negative); Blood, Urine Negative (Negative); Clarity Clear (Clear); Glucose, Urine (Dipstick) Negative (Negative); Leukocyte Negative (Negative); Nitrite Negative (Negative); Protein, Urine (Dipstick) 100 mg/dL (Neg-Trace); Specific Gravity, Urine 1.015 (1.005-1.030); Urobilinogen 0.2 mg/dL (0.2-1.0)
[2016-11-21 12:11] LABS: Bacteria/HPF Rare-Few HPF (None Seen); RBC/HPF None Seen HPF (0-3); Squamous Epithelial 0-3 HPF (0-3); WBC/HPF 0-3 HPF (0-3)
[2016-11-21 17:37] LABS: Creatinine, Urine 54.84 mg/dL (63-166); Microalbumin Urine 27.8 mg/dL (0.5-50.0); Microalbumin/Creat Ratio 506.9 mg/g (Less than 30)
== END 2016-11-20 09:16 | disposition home or self-care (01) ==
LOC: NAVSJIPCSP 09:15
PROVIDERS: ATTEND Internal Medicine
DX: Z12.5 Encounter for screening for malignant neoplasm of prostate (principal); E78.5 Hyperlipidemia, unspecified; I11.9 Hypertensive heart disease without heart failure; K21.9 Gastro-esophageal reflux disease without esophagitis; N18.2 Chronic kidney disease, stage 2 (mild); I25.10 Atherosclerotic heart disease of native coronary artery without angina pectoris; E11.51 Type 2 diabetes mellitus with diabetic peripheral angiopathy without gangrene; Z79.899 Other long term (current) drug therapy
CPT/HCPCS: 36415; 80053; 80061; 81003; 81015; 82043; 83036; 85025; G0103

== ENCOUNTER 2018-06-13 10:55 | Emergency (ER) | payer MEDICARE, OTHER ==
[2018-06-13] MEDS ORDERED: Aspirin 325 MG TAB ONE (11:23)
[2018-06-13] MEDS ORDERED: Diltiazem 125 MG/25 ML ONE (11:24)
[2018-06-13 11:25] LABS: #Basophils 0.1 thou/uL (0.0-0.2); #Eosinphils 0.6 thou/uL (0.0-0.7); #Lymphocytes 5.2 thou/uL (1.20-3.40); #Monocytes 1.1 thou/uL (0.11-0.59); #Neutrophils 5.3 thou/uL (1.40-6.50); %Basophils 0.9 % (0.0-1.0); %Eosinophils 5.3 % (0.0-10.0); %Lymphocytes 42.2 % (21.0-51.0); %Monocytes 8.6 % (0.0-10.0); Hemoglobin 13.3 g/dL (14.0-18.0); Mean Corpuscular HGB CONC 30.5 g/dL (32.0-36.0); Mean Corpuscular Hemoglobin 26.7 pg (27.0-31.0); Mean Corpuscular Volume 87.7 fL (78.0-98.0); Mean Platelet Volume 8.1 fL (7.4-10.4); Platelet Count 159 thou/uL (130-400); Red Blood Cell (RBC) Count 4.97 mill/uL (4.70-6.10); White Blood Cell (WBC) Count 12.3 thou/uL (4.8-10.8)
[2018-06-13 11:58] LABS: ALT (SGPT) 15 U/L (8-55); AST (SGOT) 21 U/L (5-34); Albumin 3.9 g/dL (3.4-4.8); Alkaline Phosphatase 81 U/L (40-150); Anion Gap 16 mmol/L (10-20); BUN (Urea Nitrogen) 24 mg/dL (8.4-25.7); Bilirubin, Total 0.4 mg/dL (0.2-1.2); CK (CPK) 141 U/L (30-200); Calc. Creatinine Clearance 0 mL/min (70-130); Calcium 9.3 mg/dL (7.8-10.44); Carbon Dioxide 19 mmol/L (23-31); Chloride 107 mmol/L (98-107); Estimated GFR-MDRD 33; Globulin 2.4 g/dL (2.4-3.5); Glucose 130 mg/dL (83-110); Potassium 4.5 mmol/L (3.5-5.1); Protein, Total 6.3 g/dL (5.8-8.1); Sodium 137 mmol/L (136-145)
[2018-06-13] MEDS ORDERED: Enoxaparin Sodium 100 MG/ML SYRINGE ONE (12:03)
--- NOTE | 2018-06-13 12:42 | RAD ---
SINGLE VIEW OF THE CHEST: COMPARISON: 06/04/2016. HISTORY: Atrial fibrillation with rapid ventricular response. FINDINGS: A single view of the chest shows a normal-size cardiomediastinal silhouette with atherosclerotic calc ifications in the aorta. The patient is status post sternotomy. There is a calcified granuloma proj ecting over the left lung. No consolidation or pleural effusion is seen. IMPRESSION: No evidence of acute cardiopulmonary disease. POS: [facility]
== END 2018-06-13 12:39 | disposition short-term general hospital (02) ==
LOC: NAV ERS 10:55
DX: I48.91 Unspecified atrial fibrillation (principal); I11.0 Hypertensive heart disease with heart failure; I50.9 Heart failure, unspecified; I25.10 Atherosclerotic heart disease of native coronary artery without angina pectoris; K21.9 Gastro-esophageal reflux disease without esophagitis; E78.5 Hyperlipidemia, unspecified; Z87.891 Personal history of nicotine dependence; Z79.899 Other long term (current) drug therapy
CPT/HCPCS: 71045; 80053; 82550; 83605; 84443; 84484; 85025; 93005; 96365; 96372; 96376; J1650

== ENCOUNTER 2018-08-04 16:30 | Emergency (ER) | payer MEDICARE, OTHER ==
[2018-08-04] MEDS ORDERED: Diltiazem 125 MG/25 ML ONE (16:56)
--- NOTE | 2018-08-04 17:05 | RAD ---
Radiograph chest one view: DATE: 08/04/2018 Time: 4:40 PM HISTORY: Tachycardia and dyspnea COMPARISON: 06/13/2018 FINDINGS: New finding of haziness at the right medial base. Cardiac size within normal limits. Sternotomy wires . No pneumothorax. IMPRESSION: Increased density at right base, questionable for small pleural effusion versus atelectasis. Lateral view would be useful.
[2018-08-04 17:07] LABS: #Basophils 0.1 thou/uL (0.0-0.2); #Eosinphils 0.4 thou/uL (0.0-0.7); #Neutrophils 6.5 thou/uL (1.40-6.50); %Basophils 0.9 % (0.0-1.0); %Lymphocytes 38.7 % (21.0-51.0); %Monocytes 7.5 % (0.0-10.0); %Neutrophils 49.9 % (42.0-75.0); Hemoglobin 13.8 g/dL (14.0-18.0); Mean Corpuscular HGB CONC 29.8 g/dL (32.0-36.0); Mean Corpuscular Hemoglobin 26.1 pg (27.0-31.0); Mean Corpuscular Volume 87.7 fL (78.0-98.0); Platelet Count 195 thou/uL (130-400); RBC Distribution Width 14.2 % (11.5-14.5); Red Blood Cell (RBC) Count 5.26 mill/uL (4.70-6.10)
[2018-08-04 17:21] LABS: ALT (SGPT) 12 U/L (8-55); AST (SGOT) 20 U/L (5-34); Albumin 3.9 g/dL (3.4-4.8); Alkaline Phosphatase 83 U/L (40-150); Anion Gap 17 mmol/L (10-20); BUN (Urea Nitrogen) 29 mg/dL (8.4-25.7); Bilirubin, Total 0.4 mg/dL (0.2-1.2); CK (CPK) 139 U/L (30-200); Calc. Creatinine Clearance 0 mL/min (70-130); Calcium 9.1 mg/dL (7.8-10.44); Carbon Dioxide 17 mmol/L (23-31); Chloride 102 mmol/L (98-107); Estimated GFR-MDRD 37; Globulin 2.6 g/dL (2.4-3.5); Glucose 137 mg/dL (83-110); Potassium 4.2 mmol/L (3.5-5.1); Protein, Total 6.5 g/dL (5.8-8.1); Sodium 132 mmol/L (136-145)
[2018-08-04 17:43] LABS: CKMB 4.6 ng/mL (0-6.6)
== END 2018-08-04 19:04 | disposition short-term general hospital (02) ==
LOC: NAV ERS 16:30
DX: I48.91 Unspecified atrial fibrillation (principal); I11.0 Hypertensive heart disease with heart failure; I50.9 Heart failure, unspecified; K21.9 Gastro-esophageal reflux disease without esophagitis; E78.5 Hyperlipidemia, unspecified; Z87.891 Personal history of nicotine dependence; Z79.899 Other long term (current) drug therapy; Z79.01 Long term (current) use of anticoagulants
CPT/HCPCS: 71045; 80053; 82550; 82553; 83880; 84484; 85025; 93005; 96365; 96366; 96376

== ENCOUNTER 2019-03-13 08:35 | Emergency (ER) | payer MEDICARE, OTHER ==
[2019-03-13] MEDS ORDERED: Lidocaine Viscous Sol 2% 15 ml UD Cup ONE (09:12)
[2019-03-13] MEDS ORDERED: Mag-Al Plus 1200 MG/1200 MG/120 MG/30 ML UDCUP ONE (09:13)
[2019-03-13 09:36] LABS: #Basophils 0.1 thou/uL (0.0-0.2); #Eosinphils 0.4 thou/uL (0.0-0.7); #Lymphocytes 4.6 thou/uL (1.20-3.40); #Monocytes 0.8 thou/uL (0.11-0.59); #Neutrophils 5.1 thou/uL (1.40-6.50); %Eosinophils 3.5 % (0.0-10.0); %Lymphocytes 41.8 % (21.0-51.0); %Monocytes 7.1 % (0.0-10.0); %Neutrophils 46.7 % (42.0-75.0); Hemoglobin 11.9 g/dL (14.0-18.0); Mean Corpuscular HGB CONC 30.2 g/dL (32.0-36.0); Mean Corpuscular Hemoglobin 26.5 pg (27.0-31.0); Mean Corpuscular Volume 87.9 fL (78.0-98.0); Mean Platelet Volume 7.3 fL (7.4-10.4); Platelet Count 191 thou/uL (130-400); RBC Distribution Width 13.8 % (11.5-14.5); Red Blood Cell (RBC) Count 4.49 mill/uL (4.70-6.10)
[2019-03-13 09:51] LABS: ALT (SGPT) 13 U/L (8-55); AST (SGOT) 17 U/L (5-34); Albumin 3.8 g/dL (3.4-4.8); Alkaline Phosphatase 64 U/L (40-110); Anion Gap 13 mmol/L (10-20); BUN (Urea Nitrogen) 27 mg/dL (8.4-25.7); Bilirubin, Total 0.5 mg/dL (0.2-1.2); Calc. Creatinine Clearance 0 mL/min (70-130); Calcium 8.9 mg/dL (7.8-10.44); Carbon Dioxide 25 mmol/L (23-31); Chloride 103 mmol/L (98-107); Estimated GFR-MDRD 32; Globulin 2.4 g/dL (2.4-3.5); Glucose 117 mg/dL (83-110); Lipase 74 U/L (8-78); Potassium 5.1 mmol/L (3.5-5.1); Protein, Total 6.2 g/dL (5.8-8.1); Sodium 136 mmol/L (136-145)
--- NOTE | 2019-03-13 09:53 | CT ---
CT Stone Protocol HISTORY: Abdominal pain. COMPARISON: None. FINDINGS: There is minimal linear scarring in the left base. The liver, spleen, pancreas and gallbladder regions appear unremarkable. Right and left adrenal glands and right and left kidneys are normal in size. There is no significant periaortic or mesenteric adenopathy. CT of pelvis performed with contrast enhancement the bladder is distended. There is no evidence of ad enopathy, mass or free fluid. The appendix is not definitively identified but no inflammatory process. Review of osseous structures show marked arthritic changes spine. Some mild old appearing compression changes at T12 are noted. IMPRESSION: No acute findings of the abdomen or pelvis.
== END 2019-03-13 10:29 | disposition home or self-care (01) ==
LOC: NAV ERS 08:35
DX: R10.11 Right upper quadrant pain (principal); I10 Essential (primary) hypertension; I25.10 Atherosclerotic heart disease of native coronary artery without angina pectoris; I48.91 Unspecified atrial fibrillation; K21.9 Gastro-esophageal reflux disease without esophagitis; E78.5 Hyperlipidemia, unspecified; Z87.891 Personal history of nicotine dependence; Z79.899 Other long term (current) drug therapy; Z79.01 Long term (current) use of anticoagulants
CPT/HCPCS: 74176; 80053; 83690; 85025

== ENCOUNTER 2022-12-09 12:50 | Inpatient (IN) | payer OTHER ==
[2022-12-09] MEDS ORDERED: Ondansetron ODT 4 MG TAB PO PRN (19:20)
[2022-12-09] MEDS ORDERED: Senokot S 8.6-50 MG TAB PO PRN (19:20)
[2022-12-09] MEDS ORDERED: Artificial Tear Sol 15 ML BOT EA EYE PRN (19:20)
[2022-12-09] MEDS ORDERED: Guaifenesin DM 100-10/5 ML UDCUP PO PRN (19:20)
[2022-12-09] MEDS ORDERED: Bisacodyl 10 MG SUPP PR PRN (19:20)
[2022-12-09] MEDS ORDERED: cloNIDine 0.1 MG TAB PO PRN (19:20)
[2022-12-09] MEDS ORDERED: Benzocaine/Menthol 1 LOZ LOZ PO PRN (19:20)
[2022-12-09] MEDS ORDERED: Acetaminophen 650 MG Suppository PR PRN (19:20)
[2022-12-09] MEDS ORDERED: Bisacodyl 5 MG TAB PO PRN (19:20)
[2022-12-09] MEDS ORDERED: Sodium Chloride 0.65% Nasal 44 ML BOT EA NARE PRN (19:20)
[2022-12-09] MEDS ORDERED: Benzonatate 100 MG CAP PO PRN (19:20)
[2022-12-09] MEDS ORDERED: Calcium Carbonate 500 MG ChewTAB PO PRN (19:20)
[2022-12-09] MEDS: Dronedarone HCl 400 MG TAB PO SCH (21:03)
[2022-12-09] MEDS: Tamsulosin HCl 0.4 MG CAP PO SCH (21:03)
[2022-12-09] MEDS: Cefdinir 300 MG CAP PO SCH (21:03)
[2022-12-09] MEDS: Apixaban 2.5 MG TAB PO SCH (21:04)
[2022-12-09] MEDS: Sucralfate 1 GM TAB PO SCH (21:04)
[2022-12-09] MEDS: Sodium Bicarbonate Tab 325 MG TAB PO SCH (21:04)
[2022-12-09] MEDS: Atorvastatin Calcium 40 MG TAB PO SCH (21:05)
[2022-12-10 06:11] LABS: %Basophils 0.8 % (0.0-1.0); %Eosinophils 3.1 % (0.0-10.0); %Lymphocytes 29.5 % (21.0-51.0); %Monocytes 8.4 % (0.0-10.0); %Neutrophils 58.3 % (42.0-75.0); Hematocrit 25.8 % (42.0-52.0); Hemoglobin 7.9 g/dL (14.0-18.0); Mean Corpuscular HGB CONC 30.6 g/dL (32.0-36.0); Mean Corpuscular Hemoglobin 28.3 pg (27.0-31.0); Mean Corpuscular Volume 92.8 fl (78.0-98.0); Mean Platelet Volume 6.6 fL (7.4-10.4); Platelet Count 148 10x3/uL (130-400); RBC Distribution Width 16.9 % (11.5-14.5); Red Blood Cell (RBC) Count 2.78 mill/uL (4.70-6.10); White Blood Cell (WBC) Count 9.6 10x3/uL (4.8-10.8)
[2022-12-10 06:12] LABS: #Basophils 0.1 thou/uL (0.0-0.2); #Eosinphils 0.3 thou/uL (0.0-0.7); #Lymphocytes 2.8 thou/uL (1.20-3.40); #Monocytes 0.8 thou/uL (0.11-0.59); #Neutrophils 5.6 thou/uL (1.40-6.50)
[2022-12-10 06:24] LABS: BUN (Urea Nitrogen) 50 mg/dL (8.4-25.7); Calc. Creatinine Clearance 16 mL/min (70-130); Carbon Dioxide 21 mmol/L (23-31); Chloride 110 mmol/L (98-107); Estimated GFR 13; Glucose 106 mg/dL (83-110); Potassium 4.5 mmol/L (3.5-5.1); Sodium 139 mmol/L (136-145)
[2022-12-10 06:25] LABS: ALT (SGPT) 14 U/L (8-55); AST (SGOT) 12 U/L (5-34); Albumin 3.1 g/dL (3.4-4.8); Alkaline Phosphatase 48 U/L (40-110); Bilirubin, Total 0.4 mg/dL (0.2-1.2); Calcium 8.3 mg/dL (7.6-10.4); Protein, Total 5.1 g/dL (5.8-8.1)
[2022-12-10] MEDS ORDERED: SENNOSIDES 8.6 MG PO SCH (09:00)
[2022-12-10] MEDS: Azithromycin 250 MG TAB PO SCH (10:02)
[2022-12-10] MEDS: Sucralfate 1 GM TAB PO SCH ×4 (10:02→20:29)
[2022-12-10] MEDS: Aspirin 81 mg Enteric Coated Tablet PO SCH (10:03)
[2022-12-10] MEDS: Apixaban 2.5 MG TAB PO SCH ×2 (10:03→20:29)
[2022-12-10] MEDS: Sodium Bicarbonate Tab 325 MG TAB PO SCH ×3 (10:03→20:29)
[2022-12-10] MEDS: Dronedarone HCl 400 MG TAB PO SCH ×2 (10:03→20:29)
[2022-12-10] MEDS: Cefdinir 300 MG CAP PO SCH ×2 (10:04→20:29)
[2022-12-10] MEDS: Dutasteride 0.5 MG CAP PO SCH (10:04)
[2022-12-10] MEDS: Calcitriol 0.25 MCG CAP PO SCH (10:04)
[2022-12-10] MEDS: Carvedilol 25 MG TAB PO SCH ×2 (10:04→17:17)
[2022-12-10] MEDS: Atorvastatin Calcium 40 MG TAB PO SCH (20:29)
[2022-12-10] MEDS: Tamsulosin HCl 0.4 MG CAP PO SCH (20:29)
[2022-12-11 06:06] LABS: #Lymphocytes 2.4 thou/uL (1.20-3.40); #Monocytes 0.8 thou/uL (0.11-0.59); #Neutrophils 5.3 thou/uL (1.40-6.50); %Basophils 0.9 % (0.0-1.0); %Eosinophils 3.5 % (0.0-10.0); %Lymphocytes 26.6 % (21.0-51.0); %Monocytes 9.2 % (0.0-10.0); %Neutrophils 59.8 % (42.0-75.0); Hematocrit 25.5 % (42.0-52.0); Hemoglobin 7.9 g/dL (14.0-18.0); Mean Corpuscular HGB CONC 30.9 g/dL (32.0-36.0); Mean Corpuscular Hemoglobin 28.8 pg (27.0-31.0); Mean Platelet Volume 7.3 fL (7.4-10.4); Platelet Count 168 10x3/uL (130-400); RBC Distribution Width 16.5 % (11.5-14.5); Red Blood Cell (RBC) Count 2.74 mill/uL (4.70-6.10); White Blood Cell (WBC) Count 8.9 10x3/uL (4.8-10.8)
[2022-12-11 06:07] LABS: #Basophils 0.1 thou/uL (0.0-0.2); #Eosinphils 0.3 thou/uL (0.0-0.7)
[2022-12-11 06:22] LABS: Anion Gap 13 mmol/L (10-20); BUN (Urea Nitrogen) 52 mg/dL (8.4-25.7); Calc. Creatinine Clearance 16 mL/min (70-130); Calcium 8.3 mg/dL (7.8-10.44); Carbon Dioxide 20 mmol/L (23-31); Chloride 108 mmol/L (98-107); Estimated GFR 13; Glucose 88 mg/dL (83-110); Potassium 4.3 mmol/L (3.5-5.1); Sodium 137 mmol/L (136-145)
[2022-12-11] MEDS: Apixaban 2.5 MG TAB PO SCH ×2 (08:51→20:39)
[2022-12-11] MEDS: Azithromycin 250 MG TAB PO SCH (08:51)
[2022-12-11] MEDS: Senokot S 8.6-50 MG TAB PO SCH (08:51)
[2022-12-11] MEDS: Sucralfate 1 GM TAB PO SCH ×4 (08:52→20:39)
[2022-12-11] MEDS: Calcitriol 0.25 MCG CAP PO SCH (08:52)
[2022-12-11] MEDS: Dutasteride 0.5 MG CAP PO SCH (08:52)
[2022-12-11] MEDS: Sodium Bicarbonate Tab 325 MG TAB PO SCH ×3 (08:53→20:39)
[2022-12-11] MEDS: Aspirin 81 mg Enteric Coated Tablet PO SCH (08:53)
[2022-12-11] MEDS: Dronedarone HCl 400 MG TAB PO SCH ×2 (08:53→20:39)
[2022-12-11] MEDS: Cefdinir 300 MG CAP PO SCH ×2 (08:54→20:38)
[2022-12-11] MEDS: Carvedilol 6.25 MG TAB PO SCH ×2 (09:04→17:09)
[2022-12-11] MEDS: Acetaminophen 325 MG TAB PO PRN (12:59)
[2022-12-11] MEDS: Tamsulosin HCl 0.4 MG CAP PO SCH (20:39)
[2022-12-11] MEDS: Atorvastatin Calcium 40 MG TAB PO SCH (20:39)
[2022-12-12 05:44] LABS: %Lymphocytes 26.7 % (21.0-51.0); %Monocytes 8.3 % (0.0-10.0); %Neutrophils 59.9 % (42.0-75.0); Hematocrit 26.2 % (42.0-52.0); Hemoglobin 8.2 g/dL (14.0-18.0); Mean Corpuscular HGB CONC 31.3 g/dL (32.0-36.0); Mean Corpuscular Hemoglobin 28.8 pg (27.0-31.0); Mean Corpuscular Volume 92.1 fl (78.0-98.0); Mean Platelet Volume 6.5 fL (7.4-10.4); Platelet Count 177 10x3/uL (130-400); RBC Distribution Width 16.7 % (11.5-14.5); Red Blood Cell (RBC) Count 2.84 mill/uL (4.70-6.10); White Blood Cell (WBC) Count 8.5 10x3/uL (4.8-10.8)
[2022-12-12 05:45] LABS: #Basophils 0.1 thou/uL (0.0-0.2); #Eosinphils 0.3 thou/uL (0.0-0.7); #Lymphocytes 2.3 thou/uL (1.20-3.40); #Monocytes 0.7 thou/uL (0.11-0.59); #Neutrophils 5.1 thou/uL (1.40-6.50)
[2022-12-12 05:53] LABS: BUN (Urea Nitrogen) 52 mg/dL (8.4-25.7); Calc. Creatinine Clearance 16 mL/min (70-130); Calcium 8.5 mg/dL (7.6-10.4); Carbon Dioxide 20 mmol/L (23-31); Chloride 107 mmol/L (98-107); Estimated GFR 13; Glucose 86 mg/dL (83-110); Potassium 4.2 mmol/L (3.5-5.1); Sodium 135 mmol/L (136-145)
[2022-12-12 07:30] LABS: Anion Gap 12 mmol/L (10-20)
[2022-12-12] MEDS: Azithromycin 250 MG TAB PO SCH (09:15)
[2022-12-12] MEDS: Sodium Bicarbonate Tab 325 MG TAB PO SCH ×3 (09:15→21:02)
[2022-12-12] MEDS: Cefdinir 300 MG CAP PO SCH (09:15)
[2022-12-12] MEDS: Senokot S 8.6-50 MG TAB PO SCH (09:15)
[2022-12-12] MEDS: Sucralfate 1 GM TAB PO SCH ×4 (09:15→21:02)
[2022-12-12] MEDS: Calcitriol 0.25 MCG CAP PO SCH (09:15)
[2022-12-12] MEDS: Apixaban 2.5 MG TAB PO SCH ×2 (09:15→21:02)
[2022-12-12] MEDS: Dutasteride 0.5 MG CAP PO SCH (09:15)
[2022-12-12] MEDS: Aspirin 81 mg Enteric Coated Tablet PO SCH (09:16)
[2022-12-12] MEDS: Dronedarone HCl 400 MG TAB PO SCH ×2 (09:16→21:02)
[2022-12-12] MEDS: Carvedilol 6.25 MG TAB PO SCH ×2 (09:16→17:11)
[2022-12-12] MEDS: Tamsulosin HCl 0.4 MG CAP PO SCH (21:02)
[2022-12-12] MEDS: Atorvastatin Calcium 40 MG TAB PO SCH (21:02)
[2022-12-13 05:39] LABS: #Basophils 0.1 thou/uL (0.0-0.2); #Eosinphils 0.4 thou/uL (0.0-0.7); #Lymphocytes 2.2 thou/uL (1.20-3.40); #Monocytes 0.7 thou/uL (0.11-0.59); %Basophils 0.8 % (0.0-1.0); %Eosinophils 4.4 % (0.0-10.0); %Lymphocytes 26.1 % (21.0-51.0); %Monocytes 8.6 % (0.0-10.0); %Neutrophils 60.1 % (42.0-75.0); Hematocrit 26.8 % (42.0-52.0); Hemoglobin 8.2 g/dL (14.0-18.0); Mean Corpuscular HGB CONC 30.6 g/dL (32.0-36.0); Mean Corpuscular Hemoglobin 28.4 pg (27.0-31.0); Mean Corpuscular Volume 92.9 fl (78.0-98.0); Mean Platelet Volume 6.9 fL (7.4-10.4); Platelet Count 195 10x3/uL (130-400); RBC Distribution Width 16.7 % (11.5-14.5); Red Blood Cell (RBC) Count 2.88 mill/uL (4.70-6.10); White Blood Cell (WBC) Count 8.3 10x3/uL (4.8-10.8)
[2022-12-13 06:01] LABS: BUN (Urea Nitrogen) 49 mg/dL (8.4-25.7); Calc. Creatinine Clearance 16 mL/min (70-130); Calcium 8.5 mg/dL (7.6-10.4); Carbon Dioxide 20 mmol/L (23-31); Chloride 108 mmol/L (98-107); Estimated GFR 13; Glucose 96 mg/dL (83-110); Potassium 4.4 mmol/L (3.5-5.1); Sodium 138 mmol/L (136-145)
[2022-12-13] MEDS: Acetaminophen 325 MG TAB PO PRN (08:40)
[2022-12-13] MEDS: Dutasteride 0.5 MG CAP PO SCH (08:42)
[2022-12-13] MEDS: Carvedilol 6.25 MG TAB PO SCH ×2 (08:43→16:37)
[2022-12-13] MEDS: Calcitriol 0.25 MCG CAP PO SCH (08:46)
[2022-12-13] MEDS: Aspirin 81 mg Enteric Coated Tablet PO SCH (08:46)
[2022-12-13] MEDS: Sodium Bicarbonate Tab 325 MG TAB PO SCH ×3 (08:46→21:19)
[2022-12-13] MEDS: Apixaban 2.5 MG TAB PO SCH ×2 (08:46→21:19)
[2022-12-13] MEDS: Dronedarone HCl 400 MG TAB PO SCH ×2 (08:48→21:19)
[2022-12-13] MEDS: Sucralfate 1 GM TAB PO SCH ×4 (08:48→21:19)
[2022-12-13] MEDS: Senokot S 8.6-50 MG TAB PO SCH (08:48)
[2022-12-13] MEDS: Atorvastatin Calcium 40 MG TAB PO SCH (21:19)
[2022-12-13] MEDS: Tamsulosin HCl 0.4 MG CAP PO SCH (21:19)
[2022-12-14] MEDS: Sodium Bicarbonate Tab 325 MG TAB PO SCH ×3 (09:24→21:04)
[2022-12-14] MEDS: Aspirin 81 mg Enteric Coated Tablet PO SCH (09:24)
[2022-12-14] MEDS: Calcitriol 0.25 MCG CAP PO SCH (09:24)
[2022-12-14] MEDS: Carvedilol 6.25 MG TAB PO SCH ×2 (09:24→17:00)
[2022-12-14] MEDS: Sucralfate 1 GM TAB PO SCH ×4 (09:24→21:04)
[2022-12-14] MEDS: Senokot S 8.6-50 MG TAB PO SCH (09:25)
[2022-12-14] MEDS: Apixaban 2.5 MG TAB PO SCH ×2 (09:25→21:05)
[2022-12-14] MEDS: Dutasteride 0.5 MG CAP PO SCH (09:25)
[2022-12-14] MEDS: Dronedarone HCl 400 MG TAB PO SCH ×2 (09:26→21:04)
[2022-12-14] MEDS: Tamsulosin HCl 0.4 MG CAP PO SCH (21:05)
[2022-12-14] MEDS: Atorvastatin Calcium 40 MG TAB PO SCH (21:05)
[2022-12-15] MEDS: Sodium Bicarbonate Tab 325 MG TAB PO SCH ×3 (09:05→20:30)
[2022-12-15] MEDS: Dutasteride 0.5 MG CAP PO SCH (09:05)
[2022-12-15] MEDS: Sucralfate 1 GM TAB PO SCH ×4 (09:05→20:30)
[2022-12-15] MEDS: Apixaban 2.5 MG TAB PO SCH ×2 (09:05→20:30)
[2022-12-15] MEDS: Aspirin 81 mg Enteric Coated Tablet PO SCH (09:05)
[2022-12-15] MEDS: Carvedilol 6.25 MG TAB PO SCH ×2 (09:06→17:32)
[2022-12-15] MEDS: Senokot S 8.6-50 MG TAB PO SCH (09:06)
[2022-12-15] MEDS: Calcitriol 0.25 MCG CAP PO SCH (09:07)
[2022-12-15] MEDS: Dronedarone HCl 400 MG TAB PO SCH ×2 (09:07→20:30)
[2022-12-15] MEDS: Tamsulosin HCl 0.4 MG CAP PO SCH (20:30)
[2022-12-15] MEDS: Atorvastatin Calcium 40 MG TAB PO SCH (20:30)
[2022-12-16 06:08] LABS: Carbon Dioxide 23 mmol/L (23-31); Chloride 109 mmol/L (98-107); Potassium 4.4 mmol/L (3.5-5.1); Sodium 138 mmol/L (136-145)
[2022-12-16 06:09] LABS: BUN (Urea Nitrogen) 48 mg/dL (8.4-25.7); Calc. Creatinine Clearance 16 mL/min (70-130); Calcium 8.3 mg/dL (7.6-10.4); Estimated GFR 13; Glucose 88 mg/dL (83-110)
[2022-12-16 06:32] LABS: #Lymphocytes 2.3 thou/uL (1.20-3.40); #Monocytes 0.7 thou/uL (0.11-0.59); #Neutrophils 3.9 thou/uL (1.40-6.50); %Eosinophils 4.4 % (0.0-10.0); %Lymphocytes 31.9 % (21.0-51.0); %Monocytes 9.1 % (0.0-10.0); %Neutrophils 53.6 % (42.0-75.0); Hemoglobin 8.1 g/dL (14.0-18.0); Mean Corpuscular Hemoglobin 27.5 pg (27.0-31.0); Mean Corpuscular Volume 91.8 fl (78.0-98.0); Mean Platelet Volume 6.3 fL (7.4-10.4); Platelet Count 203 10x3/uL (130-400); RBC Distribution Width 15.8 % (11.5-14.5); Red Blood Cell (RBC) Count 2.94 mill/uL (4.70-6.10); White Blood Cell (WBC) Count 7.2 10x3/uL (4.8-10.8)
[2022-12-16 06:33] LABS: #Basophils 0.1 thou/uL (0.0-0.2); #Eosinphils 0.3 thou/uL (0.0-0.7)
[2022-12-16] MEDS: Apixaban 2.5 MG TAB PO SCH ×2 (08:14→20:21)
[2022-12-16] MEDS: Sodium Bicarbonate Tab 325 MG TAB PO SCH ×3 (08:14→20:21)
[2022-12-16] MEDS: Senokot S 8.6-50 MG TAB PO SCH (08:14)
[2022-12-16] MEDS: Aspirin 81 mg Enteric Coated Tablet PO SCH (08:15)
[2022-12-16] MEDS: Carvedilol 6.25 MG TAB PO SCH ×2 (08:17→16:37)
[2022-12-16] MEDS: Calcitriol 0.25 MCG CAP PO SCH (08:18)
[2022-12-16] MEDS: Dutasteride 0.5 MG CAP PO SCH (08:18)
[2022-12-16] MEDS: Sucralfate 1 GM TAB PO SCH ×4 (08:18→20:21)
[2022-12-16] MEDS: Dronedarone HCl 400 MG TAB PO SCH ×2 (08:19→20:21)
[2022-12-16] MEDS: Acetaminophen 325 MG TAB PO PRN (10:51)
[2022-12-16] MEDS: Tamsulosin HCl 0.4 MG CAP PO SCH (20:21)
[2022-12-16] MEDS: Atorvastatin Calcium 40 MG TAB PO SCH (20:21)
[2022-12-17] MEDS: Sodium Bicarbonate Tab 325 MG TAB PO SCH ×3 (08:44→20:49)
[2022-12-17] MEDS: Carvedilol 6.25 MG TAB PO SCH ×2 (08:44→16:19)
[2022-12-17] MEDS: Senokot S 8.6-50 MG TAB PO SCH (08:45)
[2022-12-17] MEDS: Apixaban 2.5 MG TAB PO SCH ×2 (08:46→20:49)
[2022-12-17] MEDS: Aspirin 81 mg Enteric Coated Tablet PO SCH (08:46)
[2022-12-17] MEDS: Dronedarone HCl 400 MG TAB PO SCH ×2 (08:47→20:49)
[2022-12-17] MEDS: Dutasteride 0.5 MG CAP PO SCH (08:47)
[2022-12-17] MEDS: Sucralfate 1 GM TAB PO SCH ×4 (08:47→20:49)
[2022-12-17] MEDS: Calcitriol 0.25 MCG CAP PO SCH (08:47)
[2022-12-17 09:09] LABS: Anion Gap 15 mmol/L (10-20); BUN (Urea Nitrogen) 49 mg/dL (8.4-25.7); Calc. Creatinine Clearance 16 mL/min (70-130); Calcium 8.7 mg/dL (7.8-10.44); Carbon Dioxide 21 mmol/L (23-31); Chloride 106 mmol/L (98-107); Estimated GFR 13; Glucose 124 mg/dL (83-110); Potassium 4.4 mmol/L (3.5-5.1); Sodium 138 mmol/L (136-145)
[2022-12-17 09:10] LABS: #Basophils 0.1 thou/uL (0.0-0.2); #Eosinphils 0.4 thou/uL (0.0-0.7); #Lymphocytes 2.1 thou/uL (1.20-3.40); #Monocytes 0.6 thou/uL (0.11-0.59); #Neutrophils 4.4 thou/uL (1.40-6.50); %Basophils 1.4 % (0.0-1.0); %Eosinophils 4.9 % (0.0-10.0); %Lymphocytes 27.7 % (21.0-51.0); %Monocytes 7.7 % (0.0-10.0); %Neutrophils 58.3 % (42.0-75.0); Hematocrit 28.9 % (42.0-52.0); Mean Corpuscular HGB CONC 31.1 g/dL (32.0-36.0); Mean Corpuscular Hemoglobin 28.4 pg (27.0-31.0); Mean Corpuscular Volume 91.6 fl (78.0-98.0); Mean Platelet Volume 6.7 fL (7.4-10.4); Platelet Count 218 10x3/uL (130-400); RBC Distribution Width 16.7 % (11.5-14.5); Red Blood Cell (RBC) Count 3.16 mill/uL (4.70-6.10); White Blood Cell (WBC) Count 7.6 10x3/uL (4.8-10.8)
[2022-12-17] MEDS ORDERED: Ondansetron ODT 4 MG TAB ONE (18:02)
[2022-12-17] MEDS ORDERED: Ondansetron PF 4 MG/2 ML Vial ONE (18:02)
[2022-12-17] MEDS: Atorvastatin Calcium 40 MG TAB PO SCH (20:49)
[2022-12-17] MEDS: Tamsulosin HCl 0.4 MG CAP PO SCH (20:49)
[2022-12-18] MEDS: Dutasteride 0.5 MG CAP PO SCH (07:57)
[2022-12-18] MEDS: Dronedarone HCl 400 MG TAB PO SCH ×2 (07:57→20:48)
[2022-12-18] MEDS: Senokot S 8.6-50 MG TAB PO SCH (07:58)
[2022-12-18] MEDS: Apixaban 2.5 MG TAB PO SCH ×2 (07:58→20:48)
[2022-12-18] MEDS: Sodium Bicarbonate Tab 325 MG TAB PO SCH ×3 (07:58→20:48)
[2022-12-18] MEDS: Calcitriol 0.25 MCG CAP PO SCH (07:58)
[2022-12-18] MEDS: Sucralfate 1 GM TAB PO SCH ×4 (07:58→20:48)
[2022-12-18] MEDS: Aspirin 81 mg Enteric Coated Tablet PO SCH (07:58)
[2022-12-18] MEDS: Carvedilol 6.25 MG TAB PO SCH ×2 (07:58→16:05)
[2022-12-18 11:42] VITALS: BMI 27.3
[2022-12-18] MEDS: Atorvastatin Calcium 40 MG TAB PO SCH (20:48)
[2022-12-18] MEDS: Tamsulosin HCl 0.4 MG CAP PO SCH (20:48)
[2022-12-19 06:00] LABS: #Eosinphils 0.3 thou/uL (0.0-0.7); #Lymphocytes 2.5 thou/uL (1.20-3.40); #Monocytes 0.6 thou/uL (0.11-0.59); #Neutrophils 3.9 thou/uL (1.40-6.50); %Eosinophils 4.4 % (0.0-10.0); %Lymphocytes 33.8 % (21.0-51.0); %Monocytes 8.3 % (0.0-10.0); %Neutrophils 52.5 % (42.0-75.0); Hematocrit 26.7 % (42.0-52.0); Hemoglobin 8.3 g/dL (14.0-18.0); Manual Diff?? NO; Mean Corpuscular HGB CONC 30.8 g/dL (32.0-36.0); Mean Corpuscular Hemoglobin 28.6 pg (27.0-31.0); Mean Corpuscular Volume 92.6 fl (78.0-98.0); Platelet Count 176 10x3/uL (130-400); RBC Distribution Width 16.3 % (11.5-14.5); Red Blood Cell (RBC) Count 2.89 mill/uL (4.70-6.10); White Blood Cell (WBC) Count 7.4 10x3/uL (4.8-10.8)
[2022-12-19 06:01] LABS: #Basophils 0.1 thou/uL (0.0-0.2)
[2022-12-19 06:17] LABS: Anion Gap 10 mmol/L (10-20); BUN (Urea Nitrogen) 49 mg/dL (8.4-25.7); Calc. Creatinine Clearance 17 mL/min (70-130); Calcium 8.6 mg/dL (7.8-10.44); Carbon Dioxide 24 mmol/L (23-31); Chloride 108 mmol/L (98-107); Estimated GFR 13; Glucose 81 mg/dL (83-110); Potassium 5.1 mmol/L (3.5-5.1); Sodium 137 mmol/L (136-145)
[2022-12-19] MEDS: Dronedarone HCl 400 MG TAB PO SCH ×2 (09:09→21:07)
[2022-12-19] MEDS: Sucralfate 1 GM TAB PO SCH ×4 (09:09→21:05)
[2022-12-19] MEDS: Dutasteride 0.5 MG CAP PO SCH (09:09)
[2022-12-19] MEDS: Senokot S 8.6-50 MG TAB PO SCH (09:09)
[2022-12-19] MEDS: Calcitriol 0.25 MCG CAP PO SCH (09:10)
[2022-12-19] MEDS: Carvedilol 6.25 MG TAB PO SCH ×2 (09:10→17:18)
[2022-12-19] MEDS: Apixaban 2.5 MG TAB PO SCH ×2 (09:10→21:07)
[2022-12-19] MEDS: Aspirin 81 mg Enteric Coated Tablet PO SCH (09:10)
[2022-12-19] MEDS: Sodium Bicarbonate Tab 325 MG TAB PO SCH ×3 (09:11→21:05)
[2022-12-19] MEDS: Atorvastatin Calcium 40 MG TAB PO SCH (21:05)
[2022-12-19] MEDS: Tamsulosin HCl 0.4 MG CAP PO SCH (21:05)
[2022-12-20] MEDS: Dutasteride 0.5 MG CAP PO SCH (08:10)
[2022-12-20] MEDS: Sodium Bicarbonate Tab 325 MG TAB PO SCH ×3 (08:10→20:34)
[2022-12-20] MEDS: Sucralfate 1 GM TAB PO SCH ×4 (08:10→20:34)
[2022-12-20] MEDS: Dronedarone HCl 400 MG TAB PO SCH ×2 (08:10→20:34)
[2022-12-20] MEDS: Senokot S 8.6-50 MG TAB PO SCH (08:10)
[2022-12-20] MEDS: Aspirin 81 mg Enteric Coated Tablet PO SCH (08:10)
[2022-12-20] MEDS: Carvedilol 6.25 MG TAB PO SCH ×2 (08:11→16:34)
[2022-12-20] MEDS: Calcitriol 0.25 MCG CAP PO SCH (08:11)
[2022-12-20] MEDS: Apixaban 2.5 MG TAB PO SCH ×2 (08:13→20:34)
[2022-12-20] MEDS: Tamsulosin HCl 0.4 MG CAP PO SCH (20:34)
[2022-12-20] MEDS: Atorvastatin Calcium 40 MG TAB PO SCH (20:34)
[2022-12-21 06:22] LABS: #Basophils 0.1 thou/uL (0.0-0.2); #Eosinphils 0.3 thou/uL (0.0-0.7); #Lymphocytes 2.7 thou/uL (1.20-3.40); #Monocytes 0.6 thou/uL (0.11-0.59); #Neutrophils 4.2 thou/uL (1.40-6.50); %Basophils 1.3 % (0.0-1.0); %Eosinophils 3.2 % (0.0-10.0); %Lymphocytes 34.5 % (21.0-51.0); %Monocytes 8.1 % (0.0-10.0); %Neutrophils 52.9 % (42.0-75.0); Hematocrit 27.7 % (42.0-52.0); Hemoglobin 8.3 g/dL (14.0-18.0); Mean Corpuscular Hemoglobin 28.1 pg (27.0-31.0); Mean Corpuscular Volume 93.5 fl (78.0-98.0); Mean Platelet Volume 6.8 fL (7.4-10.4); Platelet Count 174 10x3/uL (130-400); Red Blood Cell (RBC) Count 2.96 mill/uL (4.70-6.10); White Blood Cell (WBC) Count 7.9 10x3/uL (4.8-10.8)
[2022-12-21 06:36] LABS: Anion Gap 9 mmol/L (10-20); BUN (Urea Nitrogen) 49 mg/dL (8.4-25.7); Calc. Creatinine Clearance 15 mL/min (70-130); Calcium 8.6 mg/dL (7.8-10.44); Carbon Dioxide 25 mmol/L (23-31); Chloride 108 mmol/L (98-107); Estimated GFR 12; Glucose 83 mg/dL (83-110); Potassium 4.8 mmol/L (3.5-5.1); Sodium 137 mmol/L (136-145)
[2022-12-21] MEDS: Sodium Bicarbonate Tab 325 MG TAB PO SCH ×3 (08:43→20:20)
[2022-12-21] MEDS: Apixaban 2.5 MG TAB PO SCH ×2 (08:43→20:20)
[2022-12-21] MEDS: Calcitriol 0.25 MCG CAP PO SCH (08:43)
[2022-12-21] MEDS: Sucralfate 1 GM TAB PO SCH ×4 (08:43→20:20)
[2022-12-21] MEDS: Dutasteride 0.5 MG CAP PO SCH (08:44)
[2022-12-21] MEDS: Carvedilol 6.25 MG TAB PO SCH ×2 (08:44→16:07)
[2022-12-21] MEDS: Aspirin 81 mg Enteric Coated Tablet PO SCH (08:46)
[2022-12-21] MEDS: Dronedarone HCl 400 MG TAB PO SCH ×2 (08:46→20:20)
[2022-12-21] MEDS: Senokot S 8.6-50 MG TAB PO SCH (09:37)
[2022-12-21] MEDS: Atorvastatin Calcium 40 MG TAB PO SCH (20:20)
[2022-12-21] MEDS: Tamsulosin HCl 0.4 MG CAP PO SCH (20:21)
[2022-12-22 06:39] LABS: #Basophils 0.1 thou/uL (0.0-0.2); #Eosinphils 0.4 thou/uL (0.0-0.7); #Lymphocytes 2.7 thou/uL (1.20-3.40); #Monocytes 0.6 thou/uL (0.11-0.59); %Basophils 1.3 % (0.0-1.0); %Eosinophils 4.6 % (0.0-10.0); %Lymphocytes 34.3 % (21.0-51.0); %Monocytes 8.2 % (0.0-10.0); %Neutrophils 51.6 % (42.0-75.0); Anion Gap 11 mmol/L (10-20); BUN (Urea Nitrogen) 51 mg/dL (8.4-25.7); Calc. Creatinine Clearance 16 mL/min (70-130); Calcium 8.5 mg/dL (7.8-10.44); Carbon Dioxide 23 mmol/L (23-31); Chloride 108 mmol/L (98-107); Estimated GFR 13; Glucose 82 mg/dL (83-110); Hematocrit 26.4 % (42.0-52.0); Hemoglobin 8.3 g/dL (14.0-18.0); Mean Corpuscular HGB CONC 31.2 g/dL (32.0-36.0); Mean Corpuscular Hemoglobin 28.7 pg (27.0-31.0); Mean Platelet Volume 7.3 fL (7.4-10.4); Platelet Count 159 10x3/uL (130-400); Potassium 4.8 mmol/L (3.5-5.1); RBC Distribution Width 15.6 % (11.5-14.5); Red Blood Cell (RBC) Count 2.87 mill/uL (4.70-6.10); Sodium 137 mmol/L (136-145); White Blood Cell (WBC) Count 7.7 10x3/uL (4.8-10.8)
[2022-12-22] MEDS: Dronedarone HCl 400 MG TAB PO SCH (07:48)
[2022-12-22] MEDS: Sodium Bicarbonate Tab 325 MG TAB PO SCH ×2 (07:48→15:33)
[2022-12-22] MEDS: Senokot S 8.6-50 MG TAB PO SCH (07:48)
[2022-12-22] MEDS: Sucralfate 1 GM TAB PO SCH ×2 (07:48→13:00)
[2022-12-22] MEDS: Calcitriol 0.25 MCG CAP PO SCH (07:49)
[2022-12-22] MEDS: Aspirin 81 mg Enteric Coated Tablet PO SCH (07:49)
[2022-12-22] MEDS: Dutasteride 0.5 MG CAP PO SCH (07:49)
[2022-12-22] MEDS: Apixaban 2.5 MG TAB PO SCH (07:50)
[2022-12-22] MEDS: Carvedilol 6.25 MG TAB PO SCH (07:55)
[2022-12-22 09:33] VITALS: BP 103/48; TEMP 97.8
== END 2022-12-22 15:45 | disposition home health service (06) | DRG 193 ==
LOC: NAV ACUTE 18:28
PROVIDERS: ADMIT Family Medicine; ATTEND Family Medicine
DX: J18.9 Pneumonia, unspecified organism (principal); J96.01 Acute respiratory failure with hypoxia; I50.30 Unspecified diastolic (congestive) heart failure; N18.5 Chronic kidney disease, stage 5; I13.2 Hypertensive heart and chronic kidney disease with heart failure and with stage 5 chronic kidney disease, or end stage renal disease; I48.11 Longstanding persistent atrial fibrillation; R33.9 Retention of urine, unspecified; I25.10 Atherosclerotic heart disease of native coronary artery without angina pectoris; E78.5 Hyperlipidemia, unspecified; Z95.1 Presence of aortocoronary bypass graft; Z90.49 Acquired absence of other specified parts of digestive tract; Z98.890 Other specified postprocedural states; Z87.891 Personal history of nicotine dependence; Z79.82 Long term (current) use of aspirin; Z79.899 Other long term (current) drug therapy; D63.1 Anemia in chronic kidney disease; R53.81 Other malaise
CPT/HCPCS: 36415; 80048; 80053; 85025; 87086; Q0162